=== PATIENT | male | born 1980 | race Caucasian/White ===

== ENCOUNTER 2020-11-11 00:37 | Inpatient (IN) | payer MEDICAID, OTHER ==
[2020-11-11] VITALS (13 sets, daily range): BP systolic 102–159; BP diastolic 57–100
[~2020-11-11] VITALS: Ht 177.8 cm; Wt 108.9 kg
[~2020-11-11 00:37] MED LIST: AMLO-213 PO; ASPI-1169 PO; LEVO75TA7 PO; METO25TA6 PO
[2020-11-11] MEDS ORDERED: NITROGLYCERIN 0.4 MG/TAB BOTTLE SL ONE (01:00)
[2020-11-11] MEDS ORDERED: ASPIRIN 325 MG TABLET PO ONE (01:00)
--- NOTE | 2020-11-11 01:01 | NUR ---
PT CAME IN C/O OF CHEST PRESSURE WITH LEFT ARM NUMBNESS STARTED TODAY. PT PLACED ON 2L OF O2 VIA NC. PT A/O X 4.
[2020-11-11 01:10] LABS: BASOPHILS # (AUTO) 0.1 K/uL (0.0-0.2); BASOPHILS % (AUTO) 1.4 % (0.0-2.0); EOSINOPHILS % (AUTO) 1.3 % (0.0-6.0); HEMATOCRIT 46 % (39-51); HEMOGLOBIN 15.7 g/dL (13.5-17.5); LYMPHOCYTES # (AUTO) 2.2 K/uL (0.8-4.8); LYMPHOCYTES % (AUTO) 28.8 % (20.0-44.0); MEAN CORPUSCULAR HGB CONC 34 g/dl (31.0-36.0); MEAN CORPUSCULAR VOLUME 92 fL (80-96); MONOCYTES # (AUTO) 0.4 K/uL (0.1-1.30); MONOCYTES % (AUTO) 4.8 % (2.0-12.0); NEUTROPHILS # (AUTO) 4.9 K/uL (1.8-8.9); NEUTROPHILS % (AUTO) 63.7 % (43.0-81.0); PLATELET COUNT (AUTO) 295 K/uL (150-450); RED BLOOD CELL COUNT(AUTO) 5.05 MIL/uL (4.5-6.0); WHITE BLOOD COUNT (AUTO) 7.7 K/uL (4.3-11.0)
[2020-11-11] MEDS ORDERED: NITROGLYCERIN 0.4 MG/TAB BOTTLE ONE (01:17)
[2020-11-11] MEDS ORDERED: ASPIRIN 325 MG TABLET ONE (01:18)
--- NOTE | 2020-11-11 01:30 | NUR ---
NITRO 0.4MG 1 TAB AND ASPIRIN 325 MG 1 TAB GIVE. V/S STABLE NSR ON THE MONITOR ON 2 L OF O2.
[2020-11-11 01:36] LABS: CALCIUM, SERUM 8.8 mg/dL (8.5-10.1); CREATININE 0.9 mg/dL (0.6-1.3); POTASSIUM 3.9 mmol/L (3.5-5.1)
[2020-11-11 01:46] LABS: BILIRUBIN,DIRECT 0.1 mg/dL (0.0-0.2); BILIRUBIN,TOTAL 0.2 mg/dL (0.2-1.0); TOTAL PROTEIN, SERUM 7.8 g/dL (6.4-8.2)
--- NOTE | 2020-11-11 03:00 | NUR ---
PT WAITING FOR ROOM TO BE ADMITTED. PT CURRENTLY ASLEEP V/S STABLE, HR 83, NSR ON MONITOR. WILL CONT. TO MONITOR PT.
--- NOTE | 2020-11-11 05:29 | NUR ---
PATIENT CURRENTLY AWAKE DENIES ANY PAIN OR DISCOMFORT AT THIS TIME V/S STABLE.
--- NOTE | 2020-11-11 06:17 | NUR ---
REPORT GIVEN TO LUANN GREENBERG V/S STABLE PT TRANSPORTED BY [facility]S PROTOCOL
[2020-11-11] MEDS ORDERED: ACETAMINOPHEN 325 MG TABLET PO PRN (07:00)
[2020-11-11] MEDS ORDERED: IV D5/0.45 NACL 1,000 ML IV SCH (07:00)
--- NOTE | 2020-11-11 07:10 | NUR ---
AIR BRAKE OPERATOR OPENING NOTE RECEIVED PATIENT ON BED ASLEEP BUT EASILY AROUSABLE, PATIENT IS ALERT/ ORIENTED X 4. PATIENT IS ON OXYGEN AT 2LPM VIA NASAL CANULA FOR COMFORT, WITH NO SIGNS OF RESPIRATORY DISTRESS, SATURATING AT 98-99%. PATINET WIHT IV ACCESS ON RIGHT FOREARM G22 ON SALINE LOCK, PATENT AND INTACT. HE IS ON TELE MONITORING WITH READING OF SR ON THE 80'S. PATIENT ENCOURAGED TO STAY IN BED AND DO RELAXATION TECHNIQUES SUCH DEEP BREATHING EXERCISES. VERBALIZED UNDERSTANDING AND APPRECIATION. PROVIDED WITH CALM AND QUIET ENVIRONMENT. SAFETY MEASURES ENSURED WITH BED AT LOWEST POSITION AND LOCKED. SIDERAILS RAISED FOR SAFETY X 2. CALL LIGHT AND BEDSIDE TABLE WITHIN REACH AT ALL TIMES. WILL CONTINUE TO MONITOR PATIENT.
--- NOTE | 2020-11-11 07:23 | NUR ---
superintendent warehouse Admitting/Closing Notes Patient arrived to the unit via gurney at approximately 0625 accompanied by Nurse Garcia. Patient's alert and oriented x4. Patient's on 2L of oxygen via nasal cannula with no respiratory distress noted. Patient's connected to a tele monitor with no cardiac distress noted. Safety measures in place: Bed locked, bed alarm on, side railsx2, and call light within reach of the patient. Endorsed care to the day shift nurse.
[2020-11-11] MEDS ORDERED: GABA-532 PO (08:27)
[2020-11-11] MEDS ORDERED: ATOR80TA PO (08:27)
[2020-11-11] MEDS ORDERED: OMEP20TA5 PO (08:27)
[2020-11-11] MEDS: LEVOTHYROXINE SODIUM 50 MCG TABLET PO SCH (08:46)
[2020-11-11] MEDS: METOPROLOL TARTRATE 25 MG TABLET PO SCH ×2 (08:47→21:42)
[2020-11-11] MEDS ORDERED: CLOPIDOGREL BISULFATE 75 MG TABLET PO SCH (09:00)
--- NOTE | 2020-11-11 09:10 | NUR ---
LEAD MOBILE DEVELOPER NOTE PATIENT SEEN BY DR. PAUL AND DR. JIMENEZ WITH ORDERS FOR ANGIOGRAM TO BE DONE TODAY. PATIENT VERBALIZED UNDERSTANDING OF MD EXPLANATION OF PROCEDURE. SECURED CONSENT AND ATTACHED TO CHART. WILL CONTINUE TO MONITOR PATIENT. PATIENT KEPT ON NPO.
--- NOTE | 2020-11-11 10:45 | NUR ---
PATTERN FILER NOTE PATIENT BROUGHT TO RADIOLOGY VIA BED FOR ANGIOGRAM ORDERED. PATIENT ACCOMPANIED BY 2 TECH. IN STABLE CONDITION.
--- NOTE | 2020-11-11 10:45 | NUR ---
COMPOUNDING PHARMACY TECHNICIAN OPENING NOTE RECEIVED PATIENT ON BED ASLEEP BUT EASILY AROUSABLE, PATIENT IS ALERT/ ORIENTED X 4. PATIENT IS ON OXYGEN AT 2LPM VIA NASAL CANULA FOR COMFORT, WITH NO SIGNS OF RESPIRATORY DISTRESS, SATURATING AT 98-99%. CHALINO CEBALLOSHT IV ACCESS ON RIGHT FOREARM G22 ON SALINE LOCK, PATENT AND INTACT. HE IS ON TELE MONITORING WITH READING OF SR ON THE 80'S. PATIENT ENCOURAGED TO STAY IN BED AND DO RELAXATION TECHNIQUES SUCH DEEP BREATHING EXERCISES. VERBALIZED UNDERSTANDING AND APPRECIATION. PROVIDED WITH CALM AND QUIET ENVIRONMENT. SAFETY MEASURES ENSURED WITH BED AT LOWEST POSITION AND LOCKED. SIDERAILS RAISED FOR SAFETY X 2. CALL LIGHT AND BEDSIDE TABLE WITHIN REACH AT ALL TIMES. WILL CONTINUE TO MONITOR PATIENT. Addendum: 11/11/20 at 1440 by THOMAS PERALTA RN CORRECTION OPENING NOTES FOR 0710 AM
[2020-11-11] MEDS ORDERED: IV NS 0.9% 1,000 ML ONE (10:53)
[2020-11-11] MEDS ORDERED: MIDAZOLAM HCL 2 MG/2ML VIAL ONE (10:54)
[2020-11-11] MEDS ORDERED: LIDOCAINE HCL/MPF 1% 30 ML VIAL IJ ONE (10:54)
[2020-11-11] MEDS ORDERED: IODIXANOL 150 ML IV ONE (10:54)
[2020-11-11] MEDS ORDERED: FENTANYL PF 100MCG/2ML AMPUL ONE (10:54)
[2020-11-11] MEDS ORDERED: IV SET PRIMARY PUMP SET 1 EA INFUS.SET MC ONE (10:56)
[2020-11-11] MEDS ORDERED: NITROGLYCERIN IN 5 % DEXTROSE 250 ML IV ONE (11:10)
[2020-11-11] MEDS ORDERED: HEPARIN SODIUM, PORCINE 5000 UNITS/1 ML VIAL ONE (12:26)
[2020-11-11] MEDS ORDERED: HEPARIN SODIUM, PORCINE 1,000 UNIT/ML VIAL ONE (12:26)
[2020-11-11] MEDS ORDERED: IODIXANOL 320MG/ML 50 ML IV ONE (12:35)
[2020-11-11] MEDS ORDERED: TICAGRELOR 90 MG TABLET PO ONE (12:41)
--- NOTE | 2020-11-11 13:40 | NUR ---
WOODEN FRAME BUILDER NOTE RECEIVED A CALL FROM RELATIONSHIP MANAGER. PATIENT TRANSFERRED TO ICU BED 254. WILL ENDORSE PATIENT TO ICU NURSE. ENDORSED ACCORDINGLY.
--- NOTE | 2020-11-11 13:45 | NUR ---
PATIENT RECEIVED FROM CARTRIDGE LOADER-S/P HEART CATH WITH STENT X 1 TO LAD. RIGHT FEMORAL PROCEDURE SITE SHEATH INTACT, NO ACTIVE BLEEEDING NOTED. SR 70'S ON MOMITOR. SBP >110. ON RA-SPO2 98%. AWAKE ALERT, DENIES ANY CHEST DISCOMFORT AR THIS TIME.
[2020-11-11] MEDS ORDERED: IV NS 0.9% 1,000 ML IV SCH (14:30)
--- NOTE | 2020-11-11 16:00 | NUR ---
PTT=33.6. OKAY TO DISCONTINUE FEMORAL SHEATH. DR. BARBARA SKAGGS. MARKET RISK SPECIALIST MADE AWARE-TO INFORM COMMAND CENTER OFFICER SELLING UNDERWRITER.
--- NOTE | 2020-11-11 17:50 | NUR ---
CASANDRA FROM SCHOOL VOCATIONAL EDUCATOR AT BEDSIDE TO DISCONTINUE RIGHT FEMORAL SHEATH.
--- NOTE | 2020-11-11 18:25 | NUR ---
HEMOSTASIS STABILIZED WITH MANUAL PRESSURE FOR 25 MINUTES. PRESSURE DRESSING APPLIED BY CASANDRA. CONTINUE TO MONITOR CLOSELY FOR SIGNS OF BLEEDING.PATIENT EDUCATED FOR BEDREST AND NO RLE BENDING FOR 6 HRS. STATED UNDERSTANDING.
--- NOTE | 2020-11-11 19:50 | NUR ---
RN OPENING NOTE REC'D PT IN BED. RESTING. A/O X4. PT ON ROOM AIR. SATURATING 99% NO ACUTE DISTRESS NOTED, NO SOB. PT SINUS RHYTHM IN THE 70S. PT DENIES PAIN AT THIS TIME. PT S/P HEART CATH TODAY. PRESSURE DRESSING NOTED ON RIGHT FEM. NO S/S OF BLEEDING NO HEMATOMA NOTED. DRESSING INTACT. PEDAL PULSES PRESENT. IV SITES FLUSHED AND INTACT. ALL NEEDS ATTENDED AT THIS TIME. PT VERBALIZES UNDERSTANDING OF NOT BENDING RLE. SAFETY PRECAUTIONS IN PLACE. HOB ELEVATED. SIDE RAILS UP X2. BED LOCKED IN LOWEST POSITION. CALL LIGHT WITHIN REACH. WILL CONT TO MONITOR CLOSELY FOR SAFETY AND CHANGE OF CONDITION.
[2020-11-11] MEDS ORDERED: ATORVASTATIN 40 MG TABLET PO SCH (22:00)
[2020-11-12] VITALS (12 sets, daily range): BP systolic 115–158; BP diastolic 73–96
--- NOTE | 2020-11-12 02:15 | NUR ---
RN NOTE:PAIN PT REQUESTED MEDICATION FOR PAIN MINIMAL PAIN R/T POSITIONING AND SORENESS, ADMINISTERED TYLENOL 650MG PRN ORDERED. WILL CONT TO MONITOR CLOSELY
[2020-11-12 04:35] LABS: BASOPHILS # (AUTO) 0.1 K/uL (0.0-0.2); BASOPHILS % (AUTO) 0.7 % (0.0-2.0); HEMATOCRIT 43 % (39-51); HEMOGLOBIN 14.6 g/dL (13.5-17.5); LYMPHOCYTES # (AUTO) 2.3 K/uL (0.8-4.8); MEAN CORPUSCULAR HGB CONC 34 g/dl (31.0-36.0); MEAN CORPUSCULAR VOLUME 92 fL (80-96); MONOCYTES # (AUTO) 0.6 K/uL (0.1-1.30); NEUTROPHILS # (AUTO) 5.6 K/uL (1.8-8.9); NEUTROPHILS % (AUTO) 64.3 % (43.0-81.0); PLATELET COUNT (AUTO) 241 K/uL (150-450); RED BLOOD CELL COUNT(AUTO) 4.64 MIL/uL (4.5-6.0); WHITE BLOOD COUNT (AUTO) 8.7 K/uL (4.3-11.0)
[2020-11-12 04:53] LABS: THYROID STIMULATING HORMONE 3.042 uIU/mL (0.358-3.74)
[2020-11-12 05:13] LABS: CALCIUM, SERUM 8.6 mg/dL (8.5-10.1)
[2020-11-12] MEDS ORDERED: TICAGRELOR 90 MG TABLET PO SCH (07:00)
--- NOTE | 2020-11-12 07:12 | NUR ---
RN CLOSING NOTE NO SIGNIFICANT CHANGES. PT REMAINS ON ON ROOM AIR. TOLERATING WELL. ALL IV SITES INTACT. PT ABLE TO USE URINAL. T/R INDEPENDENTLY. PRESSURE DRESSING REMOVED, NO S/S OF SWELLING, BLEEDING, HEMATOMA PRESENT. TEGADERM APPLIED. ALL DUE MEDS GIVEN ORDERED. SAFETY MEASURES IN PLACE. NO DISTRESS NOTED AT THIS TIME. WILL ENDORSE TO DAY SHIFT RN FOR CONTINUATION OF CARE.
--- NOTE | 2020-11-12 07:30 | NUR ---
AWAKE, ALERT , DENIES ANY CHEST PAIN OR DISCOMFORT. SR 70'S, NO ECTOPYS. BP STABLE. RIGHT FEMORAL PROCEDURE SITE WITHOUT SIGNS OF ACTIVE BLEEDING.
[2020-11-12] MEDS: LEVOTHYROXINE SODIUM 50 MCG TABLET PO SCH (07:44)
[2020-11-12] MEDS: METOPROLOL TARTRATE 25 MG TABLET PO SCH (08:16)
[2020-11-12] MEDS ORDERED: ASPIRIN 81 MG TAB.CHEW PO SCH (09:00)
--- NOTE | 2020-11-12 09:30 | NUR ---
AMBULATED TO THE BATHROOM. NO DIZZINESS, NO CHEST PAIN. NO BLEEDING NOTED. DENIES SOB.
--- NOTE | 2020-11-12 10:30 | NUR ---
PATIENT SEEN BY DR. COVARRUBIAS TO DISCHARGE HOME. DR. JIMENEZ NOTIFIED-HELPDESK TECHNICIAN OKST[place]ONED DISCHARGE.
[2020-11-12] MEDS ORDERED: TICA90TA PO (10:37)
--- NOTE | 2020-11-12 11:35 | NUR ---
DISCHARGE INSTRUCTIONS / PRESCRIPTION GIVEN. PATIENT INDICATED UNDERSTANDING TO DISPATCH MACHINE RUNNER BRILINTA FROM HIS PHARMACY FOR THIS PM DOSE. ACCOMPANIED TO LOBBY-PICKED UP BY .
== END 2020-11-12 11:58 | disposition home or self-care (01) | DRG 174 ==
LOC: ER 00:49 → TELE 04:48 → ICU 13:25
PROVIDERS: ADMIT Internal Medicine; ATTEND Internal Medicine
PROC: 027034Z Dilation of Coronary Artery, One Artery with Drug-eluting Intraluminal Device, Percutaneous Approach (ICD-10-PCS; principal; 2020-11-11)
PROC: 4A023N7 Measurement of Cardiac Sampling and Pressure, Left Heart, Percutaneous Approach (ICD-10-PCS; 2020-11-11)
PROC: B211YZZ Fluoroscopy of Multiple Coronary Arteries using Other Contrast (ICD-10-PCS; 2020-11-11)
PROC: B215YZZ Fluoroscopy of Left Heart using Other Contrast (ICD-10-PCS; 2020-11-11)
PROC: 4A033BC Measurement of Arterial Pressure, Coronary, Percutaneous Approach (ICD-10-PCS; 2020-11-11)
DX: I21.4 Non-ST elevation (NSTEMI) myocardial infarction (principal); E78.5 Hyperlipidemia, unspecified; I10 Essential (primary) hypertension; Z95.5 Presence of coronary angioplasty implant and graft; K29.70 Gastritis, unspecified, without bleeding; Z20.822 Contact with and (suspected) exposure to COVID-19; Z79.82 Long term (current) use of aspirin; Z79.899 Other long term (current) drug therapy; F17.200 Nicotine dependence, unspecified, uncomplicated; I25.10 Atherosclerotic heart disease of native coronary artery without angina pectoris; Z91.19 Patient's noncompliance with other medical treatment and regimen; Z86.39 Personal history of other endocrine, nutritional and metabolic disease
CPT/HCPCS: 36415; 71045-TC; 80048-TC; 80061-TC; 80076-TC; 84443-TC; 84484-TC; 85025-TC; 85378-TC; 85730-TC; 87081-TC; 92980; 93307-TC; A6403; C1725; C1769; C1887; C1894; C9803; G0378; G0500; J1644; J2250; J3010; J3490; J7030; Q9967

== ENCOUNTER 2021-01-27 07:22 | Inpatient (IN) | payer MEDICAID ==
[~2021-01-27] VITALS: Ht 177.8 cm; Wt 108.0 kg
[2021-01-27] VITALS: BP 140/90
[~2021-01-27 07:22] MED LIST changes: +ATOR80TA PO; +GABA-532 PO; +OMEP20TA5 PO; +TICA90TA PO
--- NOTE | 2021-01-27 07:40 | NUR ---
PT CAME TO ER C/O EPIGASTRIC PAIN SINCE YESTERDAY AFTER EATING SOUP. DENIES N/V, DIAPHORESIS. ADMITS BLOATING. TOOK OMEPRAZOLE 4 HRS AGO, NO RELIEF. AAOX4, BREATHIN GEVEN AND UNLABORED, PULSES 2+ BILATERALLY, SKIN WARM AND DRY, ASSITED TO ER BED 1, ON MONITOR, LAYING ON BED, GIVEN BLANKETS.
[2021-01-27] MEDS ORDERED: MAG HYDROX/AL HYDROX/SIMETH 30 ML UDC ONE ×2 (07:58→15:02)
[2021-01-27] MEDS ORDERED: ONDANSETRON HCL/PF 4 MG/2 ML VIAL ONE (07:58)
[2021-01-27] MEDS ORDERED: LIDOCAINE VISCOUS 2% UD 15 ML UDC ONE (07:59)
[2021-01-27] MEDS ORDERED: FAMOTIDINE/PF INJ 20 MG/2 ML VIAL IV ONE ×2 (07:59→08:00)
[2021-01-27] MEDS ORDERED: MAG HYDROX/AL HYDROX/SIMETH 30 ML UDC PO ONE (08:00)
[2021-01-27] MEDS ORDERED: ONDANSETRON HCL/PF 4 MG/2 ML VIAL IVP ONE (08:00)
[2021-01-27] MEDS ORDERED: IV NS 0.9% 1,000 ML BAG IV ONE (08:00)
[2021-01-27] MEDS ORDERED: LIDOCAINE VISCOUS 2% UD 15 ML UDC MM ONE (08:00)
--- NOTE | 2021-01-27 08:08 | NUR ---
RADIOLOGY AT BEDSIDE
--- NOTE | 2021-01-27 08:13 | NUR ---
ULTRASOUND BEING DONE AT BEDSIDE
[2021-01-27 08:30] LABS: BASOPHILS # (AUTO) 0.1 K/uL (0.0-0.2); BASOPHILS % (AUTO) 0.7 % (0.0-2.0); HEMATOCRIT 48 % (39-51); HEMOGLOBIN 15.9 g/dL (13.5-17.5); LYMPHOCYTES # (AUTO) 2.7 K/uL (0.8-4.8); LYMPHOCYTES % (AUTO) 22.6 % (20.0-44.0); MEAN CORPUSCULAR HGB CONC 33 g/dl (31.0-36.0); MEAN CORPUSCULAR VOLUME 91 fL (80-96); MONOCYTES # (AUTO) 0.6 K/uL (0.1-1.30); MONOCYTES % (AUTO) 5.3 % (2.0-12.0); NEUTROPHILS # (AUTO) 8.2 K/uL (1.8-8.9); NEUTROPHILS % (AUTO) 69.4 % (43.0-81.0); PLATELET COUNT (AUTO) 303 K/uL (150-450); RED BLOOD CELL COUNT(AUTO) 5.22 MIL/uL (4.5-6.0); WHITE BLOOD COUNT (AUTO) 11.8 K/uL (4.3-11.0)
[2021-01-27] MEDS: ATORVASTATIN 40 MG TABLET PO SCH (09:00)
--- NOTE | 2021-01-27 09:02 | NUR ---
PT LAYING COMFORTABLY IN BED, ADDITIONAL BLANKETS GIVEN
[2021-01-27 09:04] LABS: CALCIUM, SERUM 8.8 mg/dL (8.5-10.1); CREATININE 1.1 mg/dL (0.6-1.3); POTASSIUM 4.4 mmol/L (3.5-5.1)
[2021-01-27 09:10] LABS: ALBUMIN 4.1 g/dL (3.4-5.0); BILIRUBIN,DIRECT 0.1 mg/dL (0.0-0.2); BILIRUBIN,TOTAL 0.5 mg/dL (0.2-1.0); TOTAL PROTEIN, SERUM 8.1 g/dL (6.4-8.2)
[2021-01-27] MEDS ORDERED: ASPIRIN 81 MG TAB.CHEW ONE (09:38)
[2021-01-27] MEDS ORDERED: ASPIRIN 81 MG TAB.CHEW PO ONE (10:00)
--- NOTE | 2021-01-27 10:17 | NUR ---
PT AMBULATED TO RESTROOM
--- NOTE | 2021-01-27 10:47 | NUR ---
PAGED DR. PAUL
[2021-01-27] MEDS ORDERED: TICAGRELOR 90 MG TABLET PO STA (10:52)
[2021-01-27] MEDS ORDERED: MORPHINE SULFATE INJ 4 MG/ML DISP.SYRIN ONE (10:54)
[2021-01-27] MEDS ORDERED: ENOXAPARIN SODIUM 100 MG/ML DISP.SYRIN SQ ONE ×2 (11:00→11:35)
[2021-01-27] MEDS ORDERED: CLOPIDOGREL BISULFATE 300 MG TABLET PO ONE (11:00)
[2021-01-27] MEDS ORDERED: MORPHINE SULFATE INJ 2 MG/ML DISP.SYRIN IV ONE (11:00)
--- NOTE | 2021-01-27 11:12 | NUR ---
CALLED PHARMACY FOR MEDICATION
[2021-01-27] MEDS ORDERED: PANTOPRAZOLE 40 MG VIAL IV SCH (12:00)
[2021-01-27] MEDS ORDERED: PANTOPRAZOLE 40 MG VIAL ONE (13:29)
--- NOTE | 2021-01-27 14:51 | NUR ---
PT GOING TO 328.
[2021-01-27] MEDS ORDERED: MAG HYDROX/AL HYDROX/SIMETH 30 ML UDC PO PRN (15:00)
[2021-01-27] MEDS ORDERED: HYDROMORPHONE 1 MG/1 ML DISP.SYRIN ONE (15:03)
--- NOTE | 2021-01-27 15:20 | NUR ---
REPORT GIVEN TO RN
[2021-01-27] MEDS: HYDROMORPHONE 1 MG/1 ML DISP.SYRIN IV PRN ×3 (15:23→23:57)
--- NOTE | 2021-01-27 15:25 | NUR ---
PT TRANSPORTED TO FLOOR
--- NOTE | 2021-01-27 15:30 | NUR ---
MOLD SHEET CLEANER NOTE PATIENT ADMITTED FROM ER IS A 2 YEAR OLD MALE TRANSPORTED ON A GURNEY ACCOMPANIED BY 2 NURSES. PATIENT TRANFERRED TO BED AN COMFORT MEASURES PROVIDED. PATIENT COMPLAINING OF PERSISTENT EPIGASTRIC PAIN AND WANTS THE FOOD QUALITY TECHNICIAN TO SEE HIM. COMFORT MEASURES PROVIDED. PATIENT IS AMBULATORY BUT ENCOURAGED TO HAVE BEDREST. ENCOURAGED TO DO DEEP BREATHING EXERCISES. PATIENT WITH RIGHT AC G20 ON SALINE LOCK, PATENT AND INTACT. DR. AMARO NOTIFIED OF ADMISSION. HEALTH TEACHING DONE REGARDING ADMISSION PROTOCOL, VERBALIZED UNDERSTANDING. SAFETY MEASURES ENSURED WITH, BED LOCKED AND AT LOWEST POSITION, SIDE RAILS UP. CALL LIGHT WITHIN REACH AT ALL TIMES. WILL CONTINUE TO MONITOR PATIENT.
--- NOTE | 2021-01-27 16:15 | NUR ---
VRT MECHANIC NOTE PATIENT ON TELE MONITOR READING SINUS RHYTHYM. PATIENT CURRENTLY ASLEEP. WILL CONTINUE TO MONITOR.
[2021-01-27] MEDS: GABAPENTIN 100 MG CAPSULE PO SCH (17:47)
[2021-01-27] MEDS: METOPROLOL TARTRATE 25 MG TABLET PO SCH (17:48)
--- NOTE | 2021-01-27 18:57 | NUR ---
HANDBAG OPERATOR CLOSING NOTES PATIENT IN BED, AWAKE, A/O X4. PATIENT ON OROOM AIR BREATHING EVEN AND UNLABORED. NO COMPLAINS OF PAIN AT THIS TIME. WITH IV ACCESS ON THE RIGHT AC G20, ON SALINE LOCK, PATENT AND INTACT. SAFETY PRECAUTIONS IN PLACE, BED IN LOW POSITION AND LOCKED, RAILS UP X2, CALL LIGHT WITHIN REACH. WILL ENDORSE PATIENT FOR CONTINUITY OF CARE.
--- NOTE | 2021-01-27 19:45 | NUR ---
PRESCHOOL PROGRAM DIRECTOR NOTES SR-86 ON TELE MONITOR,A/O X4PER REPORT,SLEEPING WHEN NURSE MAKE ROUNDS,BREATHING REGULAR,NOT IN ANY FORM OF DISTRESS.SALINE LOCK RIGHT AC INTACT AND PATENT.CALL LIGHT IN REACH,NEEDS ANTICIPATED.
[2021-01-27 20:00] VITALS: BP 124/91
--- NOTE | 2021-01-27 23:57 | NUR ---
CEILING CLEANER NOTES PAIN MANAGEMENT C/O ABDOMINAL PAIN,DILAUDID 0.5MG IV GIVEN ORDERED.
[2021-01-28] VITALS: BP 140/99
--- NOTE | 2021-01-28 | NUR ---
INFORMATION CLERK AUTOMOBILE CLUB NOTES COMPLAINTS OF ABDOMINAL,THE REASON WHY HE WAS HERE AND HE WANTS CT ABDOMEN,MD DR PAUL MADE AWARE WITH NEW ORDER NOTED AND CARRIED OUT.
--- NOTE | 2021-01-28 00:18 | NUR ---
REGISTRY NP NOTES GOING FOR CT ABDOMEN PELVIS WITHOUT CONTRAST IN THE MORNING ORDERED.
[2021-01-28 05:00] VITALS: BP 141/93
[2021-01-28 05:40] VITALS: BP 141/93
--- NOTE | 2021-01-28 06:29 | NUR ---
PANTOGRAPH WATCHER NOTES STILL WITH ON AND OFF MID UPPER ABDOMINAL PAIN,MANAGE WITH DILAUDID.KEPT NPO FOR CD ANGIO HEART WITH 3D IMAGE, AND CT ABDOMEN PELVIS WITH OUT CONTRAST,SR ON TELE MONITOR.CALL LIGHT IN REACH,NEEDS ATTENDED.
[2021-01-28] MEDS: LEVOTHYROXINE SODIUM 125 MCG TABLET PO SCH (07:30)
--- NOTE | 2021-01-28 07:30 | NUR ---
DUCK OPERATOR OPENING NOTE RECEIVED PT AWAKE IN BED. A/O X4. PT IS STABLE ON RA WITH NO SOB OR S/S OF RESPIRATORY DISTRESS NOTED. PT ON EXTERNAL SLICE PLUG CUTTER OPERATOR READING SR. PT HAS NO C/O PAIN OR DISCOMFORT AT THIS TIME. IV ACCESS IN RAC #20, INTACT AND PATENT. PT KEPT NPO DUE TO UPCOMING CT ABD/PELVIS W/O CONTRAST. SAFETY PRECAUTIONS MAINTAINED. BED IN LOWEST LOCKED POSITION, HOB ELEVATED, SIDE RAILS UP X2. CALL LIGHT AND TABLE WITHIN REACH. WILL CONTINUE TO MONITOR.
[2021-01-28 07:50] LABS: BASOPHILS % (AUTO) 0.5 % (0.0-2.0); EOSINOPHILS % (AUTO) 1.6 % (0.0-6.0); HEMATOCRIT 45 % (39-51); HEMOGLOBIN 15.1 g/dL (13.5-17.5); LYMPHOCYTES # (AUTO) 1.6 K/uL (0.8-4.8); LYMPHOCYTES % (AUTO) 17.9 % (20.0-44.0); MEAN CORPUSCULAR HGB CONC 34 g/dl (31.0-36.0); MEAN CORPUSCULAR VOLUME 91 fL (80-96); MONOCYTES # (AUTO) 0.5 K/uL (0.1-1.30); NEUTROPHILS # (AUTO) 6.5 K/uL (1.8-8.9); PLATELET COUNT (AUTO) 272 K/uL (150-450); RED BLOOD CELL COUNT(AUTO) 4.91 MIL/uL (4.5-6.0); WHITE BLOOD COUNT (AUTO) 8.7 K/uL (4.3-11.0)
[2021-01-28] MEDS: METOPROLOL TARTRATE 25 MG TABLET PO SCH ×2 (08:08→16:46)
[2021-01-28] MEDS: ASPIRIN 81 MG TAB.CHEW PO SCH (08:41)
[2021-01-28] MEDS: ATORVASTATIN 40 MG TABLET PO SCH (08:41)
[2021-01-28] MEDS: GABAPENTIN 100 MG CAPSULE PO SCH ×2 (08:42→16:45)
[2021-01-28] MEDS: AMLODIPINE BESYLATE 10 MG TABLET PO SCH (08:42)
[2021-01-28] MEDS ORDERED: IOHEXOL-350 100 ML VIAL IV ONE (09:02)
[2021-01-28] MEDS ORDERED: IV NS 0.9% 250 ML IV ONE (09:02)
[2021-01-28] MEDS ORDERED: METOPROLOL TARTRATE INJ 5 MG/5 ML AMPUL ONE ×2 (09:08→09:22)
[2021-01-28] MEDS: METOPROLOL TARTRATE INJ 5 MG/5 ML AMPUL IVP SCH ×3 (09:10→09:20)
[2021-01-28] MEDS: METOPROLOL TARTRATE INJ 5 MG/5 ML AMPUL IVP STA ×2 (09:10→09:17)
[2021-01-28] MEDS: METOPROLOL TARTRATE INJ 5 MG/5 ML AMPUL IVP PRN ×6 (09:30→09:56)
[2021-01-28] MEDS ORDERED: NITROGLYCERIN 0.4 MG/TAB BOTTLE SL ONE ×2 (09:30)
[2021-01-28] MEDS ORDERED: METOPROLOL TARTRATE INJ 5 MG/5 ML AMPUL IVP ONE (09:30)
[2021-01-28 09:50] LABS: ALBUMIN 3.7 g/dL (3.4-5.0); BILIRUBIN,TOTAL 0.5 mg/dL (0.2-1.0); CALCIUM, SERUM 8.6 mg/dL (8.5-10.1); CREATININE 1.1 mg/dL (0.6-1.3); POTASSIUM 4.1 mmol/L (3.5-5.1); TOTAL PROTEIN, SERUM 7.7 g/dL (6.4-8.2)
--- NOTE | 2021-01-28 09:58 | NUR ---
RN NOTES CTA PROCEDURE WELL TOLERATED BY THE PT. NOT IN RESPIRATORY DISTRESS, V/S STABLE, KEPT RESTED AND COMFORTABLE. REPORT GIVEN TO DIONICIO GARCIA FOR VINCE.
[2021-01-28] MEDS: HYDROMORPHONE 1 MG/1 ML DISP.SYRIN IV PRN ×3 (10:18→23:14)
--- NOTE | 2021-01-28 10:18 | NUR ---
RN NOTE - PAIN PT C/O ACHING PAIN IN THE ABDOMEN RATED 9/10 ON PAIN SCALE. VSS. PER PT REQUEST, ADMINISTERED DILAUDID 0.5MG IV Q3H PRN PER ORDER. WILL CONTINUE TO MONITOR PT.
[2021-01-28] MEDS: PANTOPRAZOLE 40 MG VIAL IV SCH ×2 (12:03→16:45)
[2021-01-28] MEDS: SUCRALFATE 1 G TABLET PO SCH ×3 (12:03→21:13)
--- NOTE | 2021-01-28 18:33 | NUR ---
HOUSING AND RESIDENCE LIFE DIRECTOR CLOSING NOTE PT AWAKE IN BED. A/O X4. PT IS STABLE ON RA WITH NO SOB OR S/S OF RESPIRATORY DISTRESS NOTED. PT ON EXTERNAL MOTOR EQUIPMENT CAPTAIN READING SR @ 84. PT HAS NO C/O PAIN OR DISCOMFORT AT THIS TIME. IV ACCESS IN RAC #20, INTACT AND PATENT. ALL NEEDS MET AT THIS TIME. SAFETY PRECAUTIONS MAINTAINED AT THIS TIME. BED IN LOWEST LOCKED POSITION, HOB ELEVATED, SIDE RAILS UP X2. CALL LIGHT AND TABLE WITHIN REACH. WILL ENDORSE TO ONCOMING NURSE FOR VINCE.
--- NOTE | 2021-01-28 19:36 | NUR ---
LATIN TEACHER OPENING NOTE RECEIVED PT AWAKE IN BED. A/O X4. IN NO APPARENT DISTRESS NOTED, BREATHING EVEN AND UNLABORED. PATIENT DENIES OF PAIN OR DISCOMFORT AT THIS TIME. PT ON EXTERNAL ENVIRONMENTAL SAMPLER WITH CURRENT READING NSR HR-92. IV ACCESS IN RAC #20, INTACT AND PATENT. SAFETY PRECAUTIONS MAINTAINED AT THIS TIME. BED IN LOWEST LOCKED POSITION, HOB ELEVATED, SIDE RAILS UP X2. CALL LIGHT AND TABLE WITHIN REACH. WILL CONTINUE TO MONITOR PATIENT ACCORDINGLY.
[2021-01-28 21:56] VITALS: BP 126/77
--- NOTE | 2021-01-28 23:47 | NUR ---
QUALITY CONTROL SPECIALIST NOTES PT. C/O UPPER ABDOMINAL PAIN 10/05 PRN DILAUDID IV GIVEN ORDERED . PLACE PT. IN COMFORTABLE POSITION AND KEPT HIM REST. FREQUENT VISUAL CHECKS RENDERED TO ENSURE SAFETY AND COMFORT. WILL CONTINUE TO MONITOR PT. ACCDGLY
[2021-01-29 03:26] VITALS: BP 123/75
[2021-01-29 06:10] LABS: CALCIUM, SERUM 8.6 mg/dL (8.5-10.1); CREATININE 1.2 mg/dL (0.6-1.3); POTASSIUM 3.8 mmol/L (3.5-5.1)
--- NOTE | 2021-01-29 06:24 | NUR ---
DISPATCH MANAGER CLOSING NOTE PT AWAKE IN BED. A/O X4. PT IS STABLE ON RA WITH NO RESPIRATORY DISTRESS NOTED. BREATHING EVEN AND UNLABORED. PT ON EXTERNAL ACCOUNTING ANALYST WITH CURRENT READING NSR HR 85. PT HAS NO C/O PAIN OR DISCOMFORT AT THIS TIME. IV ACCESS IN RAC #20, INTACT AND PATENT. ALL NEEDS ATTENDED. SAFETY PRECAUTIONS MAINTAINED AT THIS TIME. BED IN LOWEST LOCKED POSITION, HOB ELEVATED, SIDE RAILS UP X2. CALL LIGHT AND TABLE WITHIN EASY REACH. WILL ENDORSE PT. TO DAYTIME SHIFT NURSE FOR VINCE.
[2021-01-29 07:09] VITALS: BP 124/80
--- NOTE | 2021-01-29 07:30 | NUR ---
NEWS LIBRARIAN OPENING NOTES RECEIVED PATIENT ON BED, AWAKE AND A/O X4. ON ROOM AIR BREATHING EVENLY AND UNLABORED. NOT IN DISTRESS. WITH NO COMPLAINTS OF PAIN AT THIS TIME. WITH IV ACCESS AT RIGHT AC G20 SALINE LOCKED, PATENT AND INTACT. ON TELE MONITOR CURRENTLY READING SINUS RHYTHM AT 80BPM. SAFETY MEASURES IN PLACED. CALL LIGHT WITHIN REACH. BED ON LOWEST AND LOCKED POSITION, SIDE RAILS UP X2. WILL CONTINUE TO MONITOR.
[2021-01-29 08:00] VITALS: BP 116/73
[2021-01-29] MEDS: AMLODIPINE BESYLATE 10 MG TABLET PO SCH (09:00)
[2021-01-29] MEDS: SUCRALFATE 1 G TABLET PO SCH ×2 (09:11→11:43)
[2021-01-29] MEDS: ASPIRIN 81 MG TAB.CHEW PO SCH (09:13)
[2021-01-29] MEDS: PANTOPRAZOLE 40 MG VIAL IV SCH (09:14)
[2021-01-29 09:17] VITALS: BP 116/73
[2021-01-29] MEDS: METOPROLOL TARTRATE 25 MG TABLET PO SCH (09:17)
[2021-01-29] MEDS: ATORVASTATIN 40 MG TABLET PO SCH (09:18)
[2021-01-29] MEDS: LEVOTHYROXINE SODIUM 125 MCG TABLET PO SCH (09:18)
[2021-01-29] MEDS: GABAPENTIN 100 MG CAPSULE PO SCH (09:19)
[2021-01-29] MEDS ORDERED: PANT40TA2 PO (10:16)
[2021-01-29] MEDS ORDERED: CLOP75TA15 PO (10:16)
[2021-01-29] MEDS ORDERED: SUCR1TAB31 PO (10:16)
--- NOTE | 2021-01-29 11:54 | NUR ---
MOSAIC TILE MAKERGUIDE WINDER NOTES PATIENT WAS SEEN BY DR. PAUL WITH ORDERS FOR PATIENT FOR DISCHARGE TO HOME. DISCHARGE INSTRUCTIONS AND EDUCATION PROVIDED TO PATIENT AND EXPLAINED MEDICATIONS AND PRESCRIPTIONS. PATIENT VERBALIZED UNDERSTANDING. DISCHARGE FORM AND BELONGINGS LIST FORM SIGNED BY PATIENT. ALL BELONGINGS ACCOUNTED FOR. NAME WRIST BAND AND IV LINE REMOVED. ACCOMPANIED PATIENT TO THE [facility] AND WAS PICKED UP BY VIA PRIVATE CAR IN STABLE CONDITION. CHARGE NURSE AND MD ARE AWARE OF THE DISCHARGE.
== END 2021-01-29 11:55 | disposition home or self-care (01) | DRG 241 ==
LOC: ER 07:25 → TRANSITION 13:11 → TELE 14:57
PROVIDERS: ADMIT Internal Medicine; ATTEND Internal Medicine
DX: K29.70 Gastritis, unspecified, without bleeding (principal); E03.9 Hypothyroidism, unspecified; E78.5 Hyperlipidemia, unspecified; I25.10 Atherosclerotic heart disease of native coronary artery without angina pectoris; I10 Essential (primary) hypertension; Z95.5 Presence of coronary angioplasty implant and graft; Z79.82 Long term (current) use of aspirin; Z79.899 Other long term (current) drug therapy; Z91.19 Patient's noncompliance with other medical treatment and regimen; Z79.02 Long term (current) use of antithrombotics/antiplatelets; K80.20 Calculus of gallbladder without cholecystitis without obstruction; N20.0 Calculus of kidney; F17.200 Nicotine dependence, unspecified, uncomplicated; R79.89 Other specified abnormal findings of blood chemistry
CPT/HCPCS: 36415; 71045-TC; 75574; 76705-TC; 80048-TC; 80053-TC; 80061-TC; 80076-TC; 82962-TC; 83690-TC; 84484-TC; 85025-TC; 87081-TC; C9113; C9803; G0378; J1170; J1650; J2270; J2405; J3490; J7050; Q9967

== ENCOUNTER 2023-04-15 22:18 | Emergency (ER) | payer MEDICAID ==
[~2023-04-15] VITALS: Ht 177.8 cm; Wt 104.3 kg
[~2023-04-15 22:18] MED LIST changes: +CLOP75TA15 PO; +PANT40TA2 PO; +SUCR1TAB31 PO; -TICA90TA PO
[2023-04-15 22:32] VITALS: TEMP 98.2
[2023-04-15] MEDS ORDERED: KETOROLAC TROMETHAMINE INJ 30 MG/ML VIAL ONE (22:50)
[2023-04-15] MEDS: KETOROLAC TROMETHAMINE INJ 60 MG/2 ML VIAL IM ONE (22:56)
[2023-04-16 00:56] VITALS: BP 162/91; O2SAT 99
== END 2023-04-16 00:57 | disposition home or self-care (01) ==
LOC: ER 22:21
DX: S39.012A Strain of muscle, fascia and tendon of lower back, initial encounter (principal); I10 Essential (primary) hypertension; E07.9 Disorder of thyroid, unspecified; Z79.899 Other long term (current) drug therapy; V89.2XXA Person injured in unspecified motor-vehicle accident, traffic, initial encounter; Y93.89 Activity, other specified; Y92.89 Other specified places as the place of occurrence of the external cause; Y99.8 Other external cause status
CPT/HCPCS: 99285; 72125; 96372; 70450; 72131; 72128; J1885

== ENCOUNTER 2024-03-23 16:01 | Inpatient (IN) | payer MEDICAID ==
[~2024-03-23] VITALS: Ht 180.3 cm; Wt 99.9 kg
[2024-03-23] MEDS ORDERED: NITROGLYCERIN 0.4 MG/TAB BOTTLE ONE (16:18)
[2024-03-23] MEDS ORDERED: ASPIRIN EC 325 MG TABLET.DR PO ONE (16:19)
[2024-03-23] MEDS: ASPIRIN 325 MG TABLET PO ONE (16:20)
[2024-03-23] MEDS: NITROGLYCERIN 0.4 MG/TAB BOTTLE SL ONE (16:21)
[2024-03-23 16:43] LABS: BASOPHILS # (AUTO) 0.1 K/uL (0.0-0.2); BASOPHILS % (AUTO) 0.8 % (0.0-2.0); EOSINOPHILS # (AUTO) 0.1 K/uL (0.0-0.7); EOSINOPHILS % (AUTO) 0.7 % (0.0-6.0); HEMATOCRIT 43 % (39-51); HEMOGLOBIN 14.6 g/dL (13.5-17.5); LYMPHOCYTES # (AUTO) 2.6 K/uL (0.8-4.8); LYMPHOCYTES % (AUTO) 27.7 % (20.0-44.0); MEAN CORPUSCULAR HEMOGLOBIN 32 PG (26.0-33.0); MEAN CORPUSCULAR HGB CONC 34 g/dl (31.0-36.0); MEAN CORPUSCULAR VOLUME 95 fL (80-96); MONOCYTES # (AUTO) 0.6 K/uL (0.1-1.30); MONOCYTES % (AUTO) 6.4 % (2.0-12.0); NEUTROPHILS % (AUTO) 64.4 % (43.0-81.0); PLATELET COUNT (AUTO) 287 K/uL (150-450); RED BLOOD CELL COUNT(AUTO) 4.53 MIL/uL (4.5-6.0); RED CELL DISTRIBUTION WIDTH 14.1 % (11.5-15.0); WHITE BLOOD COUNT (AUTO) 9.4 K/uL (4.3-11.0)
[2024-03-23 16:50] LABS: CALCIUM, SERUM 8.8 mg/dL (8.5-10.1); CARBON DIOXIDE 28 mmol/L (21-32); CHLORIDE 105 mmol/L (98-107); CREATININE 1.2 mg/dL (0.6-1.3); GLUCOSE 99 mg/dL (74-106); SODIUM SERUM 140 mmol/L (136-145); UREA NITROGEN, BLOOD 24 mg/dL (7-18)
[2024-03-23] MEDS ORDERED: MORPHINE SULFATE INJ 4 MG/ML DISP.SYRIN ONE (21:46)
[2024-03-23] MEDS: MORPHINE SULFATE INJ 2 MG/ML DISP.SYRIN IV ONE (21:47)
[2024-03-23] MEDS ORDERED: METOPROLOL TARTRATE 50 MG TABLET ONE (21:47)
[2024-03-23] MEDS: METOPROLOL TARTRATE 50 MG TABLET PO SCH (23:08)
[2024-03-24] MEDS ORDERED: ZOLPIDEM TARTRATE 5 MG TABLET PO PRN (00:30)
[2024-03-24] MEDS ORDERED: HYDROCODONE/APAP 5/325MG TABLET PO PRN (00:30)
[2024-03-24] MEDS ORDERED: ONDANSETRON HCL/PF 4 MG/2 ML VIAL IV PRN (00:30)
[2024-03-24] MEDS ORDERED: ACETAMINOPHEN 325 MG TABLET PO PRN (00:30)
[2024-03-24 06:40] LABS: BASOPHILS # (AUTO) 0.1 K/uL (0.0-0.2); BASOPHILS % (AUTO) 0.7 % (0.0-2.0); EOSINOPHILS # (AUTO) 0.1 K/uL (0.0-0.7); EOSINOPHILS % (AUTO) 0.7 % (0.0-6.0); HEMATOCRIT 41 % (39-51); HEMOGLOBIN 13.9 g/dL (13.5-17.5); LYMPHOCYTES # (AUTO) 2.4 K/uL (0.8-4.8); LYMPHOCYTES % (AUTO) 28.8 % (20.0-44.0); MEAN CORPUSCULAR HEMOGLOBIN 32 PG (26.0-33.0); MEAN CORPUSCULAR HGB CONC 34 g/dl (31.0-36.0); MEAN CORPUSCULAR VOLUME 94 fL (80-96); MONOCYTES # (AUTO) 0.5 K/uL (0.1-1.30); MONOCYTES % (AUTO) 6.3 % (2.0-12.0); NEUTROPHILS # (AUTO) 5.3 K/uL (1.8-8.9); NEUTROPHILS % (AUTO) 63.5 % (43.0-81.0); PLATELET COUNT (AUTO) 272 K/uL (150-450); RED CELL DISTRIBUTION WIDTH 13.8 % (11.5-15.0); WHITE BLOOD COUNT (AUTO) 8.3 K/uL (4.3-11.0)
[2024-03-24] MEDS ORDERED: METOPROLOL TARTRATE 50 MG TABLET ONE (06:44)
[2024-03-24 06:51] LABS: CALCIUM, SERUM 8.8 mg/dL (8.5-10.1); CREATININE 0.7 mg/dL (0.6-1.3); POTASSIUM 4.4 mmol/L (3.5-5.1)
[2024-03-24 06:59] LABS: ALBUMIN 3.4 g/dL (3.4-5.0); BILIRUBIN,TOTAL 0.5 mg/dL (0.2-1.0); TOTAL PROTEIN, SERUM 6.6 g/dL (6.4-8.2)
[2024-03-24 07:03] LABS: THYROID STIMULATING HORMONE 6.81 uIU/mL (0.358-3.74)
[2024-03-24 07:05] VITALS: O2SAT 98
[2024-03-24] MEDS ORDERED: LEVO175T7 PO (07:47)
[2024-03-24] MEDS: CLOPIDOGREL BISULFATE 75 MG TABLET PO SCH (09:00)
[2024-03-24] MEDS: ASPIRIN 81 MG TAB.CHEW PO SCH (09:00)
[2024-03-24] MEDS: SUCRALFATE 1 G TABLET PO SCH (09:12)
[2024-03-24] MEDS: PANTOPRAZOLE 40 MG TABLET.DR PO SCH (09:12)
[2024-03-24] MEDS: GABAPENTIN 100 MG CAPSULE PO SCH (09:12)
[2024-03-24] MEDS: AMLODIPINE BESYLATE 5 MG TABLET PO SCH (09:14)
[2024-03-24 11:42] LABS: INR 0.99 (0.91-1.10); PARTIAL THROMBOPLASTIN TIME 25.4 SEC (24.3-34.3); PROTHROMBIN TIME 10.5 SECS (9.2-11.1)
[2024-03-24 12:00] VITALS: BP 154/104; TEMP 98.2; O2SAT 97
[2024-03-24] MEDS ORDERED: IV SET PRIMARY PUMP SET 1 EA INFUS.SET MC ONE (12:27)
[2024-03-24] MEDS ORDERED: IV NS 0.9% 1,000 ML ONE (12:27)
[2024-03-24] MEDS ORDERED: IODIXANOL 150 ML IV ONE (12:28)
[2024-03-24] MEDS ORDERED: NITROGLYCERIN IN 5 % DEXTROSE 250 ML IV ONE (12:28)
[2024-03-24] MEDS ORDERED: LIDOCAINE HCL/MPF 1% 30 ML VIAL IJ ONE (12:28)
[2024-03-24] MEDS ORDERED: MIDAZOLAM HCL 2 MG/2ML VIAL ONE (13:39)
[2024-03-24] MEDS ORDERED: FENTANYL PF 100MCG/2ML AMPUL ONE (13:39)
[2024-03-24 16:00] VITALS: BP 138/94; TEMP 97.9; O2SAT 95
[2024-03-24 17:31] VITALS: BP 138/94
[2024-03-24] MEDS ORDERED: ATORVASTATIN 40 MG TABLET PO SCH (22:00)
== END 2024-03-24 19:00 | disposition home or self-care (01) | DRG 192 ==
LOC: ER 16:04 → TRANSITION 03-24 05:21 → TELE 03-24 06:12
PROVIDERS: ADMIT Internal Medicine; ATTEND Internal Medicine
PROC: 4A023N7 Measurement of Cardiac Sampling and Pressure, Left Heart, Percutaneous Approach (ICD-10-PCS; principal; 2024-03-24)
PROC: B211YZZ Fluoroscopy of Multiple Coronary Arteries using Other Contrast (ICD-10-PCS; 2024-03-24)
DX: M94.0 Chondrocostal junction syndrome [Tietze] (principal); E78.5 Hyperlipidemia, unspecified; F17.200 Nicotine dependence, unspecified, uncomplicated; I10 Essential (primary) hypertension; I25.10 Atherosclerotic heart disease of native coronary artery without angina pectoris; Z95.5 Presence of coronary angioplasty implant and graft; K29.70 Gastritis, unspecified, without bleeding; Z79.02 Long term (current) use of antithrombotics/antiplatelets; Z79.890 Hormone replacement therapy; Z79.82 Long term (current) use of aspirin; Z79.899 Other long term (current) drug therapy
CPT/HCPCS: 36415; 71045-TC; 80048-TC; 80053-TC; 80061-TC; 84443-TC; 84484-TC; 85025-TC; 85610-TC; 85730-TC; 93307-TC; A4223; G0378; J1644; J2250; J2270; J3010; J3490; J7030; Q9967

== ENCOUNTER 2024-10-03 15:19 | Inpatient (IN) | payer MEDICAID ==
[~2024-10-03] VITALS: Ht 177.8 cm; Wt 106.1 kg
[~2024-10-03 15:19] MED LIST changes: -CLOP75TA15 PO; +LEVO175T7 PO; -LEVO75TA7 PO; -PANT40TA2 PO; -SUCR1TAB31 PO
[2024-10-03] MEDS ORDERED: MORPHINE SULFATE INJ 4 MG/ML DISP.SYRIN ONE ×3 (15:35→20:06)
[2024-10-03] MEDS ORDERED: ONDANSETRON HCL/PF 4 MG/2 ML VIAL ONE (15:35)
[2024-10-03] MEDS ORDERED: ASPIRIN EC 325 MG TABLET.DR PO ONE (15:36)
[2024-10-03] MEDS: ASPIRIN 325 MG TABLET PO ONE (15:41)
[2024-10-03] MEDS: ONDANSETRON HCL/PF 4 MG/2 ML VIAL IVP ONE (15:41)
[2024-10-03] MEDS: MORPHINE SULFATE INJ 2 MG/ML DISP.SYRIN IV ONE ×3 (15:43→20:08)
[2024-10-03 15:47] LABS: PLATELET COUNT (AUTO) 269 K/uL (150-450); RED BLOOD CELL COUNT(AUTO) 5.47 MIL/uL (4.5-6.0); RED CELL DISTRIBUTION WIDTH 13.2 % (11.5-15.0); WHITE BLOOD COUNT (AUTO) 9.3 K/uL (4.3-11.0)
[2024-10-03 16:07] LABS: CALCIUM, SERUM 9.0 mg/dL (8.5-10.1); CREATININE 1.0 mg/dL (0.6-1.3); NT-PRO BNP 128 pg/mL (0-125); SODIUM SERUM 138 mmol/L (136-145); UREA NITROGEN, BLOOD 16 mg/dL (7-18)
[2024-10-03] MEDS: NITROGLYCERIN 0.4 MG/TAB BOTTLE SL ONE (16:34)
[2024-10-03] MEDS ORDERED: ZOLPIDEM TARTRATE 5 MG TABLET PO PRN (20:30)
[2024-10-03] MEDS ORDERED: ONDANSETRON HCL/PF 4 MG/2 ML VIAL IVP PRN (20:30)
[2024-10-03] MEDS ORDERED: DOCUSATE SODIUM 100 MG CAPSULE PO PRN (20:30)
[2024-10-03] MEDS ORDERED: NITROGLYCERIN 0.4 MG/TAB BOTTLE SL PRN (20:30)
[2024-10-03] MEDS ORDERED: MAG HYDROX/AL HYDROX/SIMETH 30 ML UDC PO PRN (20:30)
[2024-10-03] MEDS ORDERED: ACETAMINOPHEN 325 MG TABLET PO PRN (20:30)
[2024-10-03 21:10] VITALS: BP 136/97; TEMP 97.7; O2SAT 96
[2024-10-03] MEDS: HEPARIN SODIUM, PORCINE 5000 UNITS/1 ML VIAL SQ SCH (21:26)
[2024-10-03 21:30] VITALS: BP 136/97; TEMP 97.7; O2SAT 96
[2024-10-04] VITALS: BP 126/82; TEMP 98.2; O2SAT 94
[2024-10-04] MEDS: MORPHINE SULFATE INJ 2 MG/ML DISP.SYRIN IV PRN (00:03)
[2024-10-04 04:00] VITALS: BP 100/50; TEMP 97.7; O2SAT 96
[2024-10-04] MEDS: LEVOTHYROXINE SODIUM 175 MCG TABLET PO SCH (07:19)
[2024-10-04 07:39] LABS: LDL 107 mg/dL (0-99)
[2024-10-04 08:00] VITALS: BP 111/79; TEMP 97.5; O2SAT 94
[2024-10-04] MEDS: PANTOPRAZOLE 40 MG TABLET.DR PO SCH (08:38)
[2024-10-04] MEDS: ASPIRIN 81 MG TAB.CHEW PO SCH (08:38)
[2024-10-04] MEDS: AMLODIPINE BESYLATE 10 MG TABLET PO SCH (08:38)
[2024-10-04] MEDS: GABAPENTIN 100 MG CAPSULE PO SCH (08:38)
[2024-10-04] MEDS: ATORVASTATIN 40 MG TABLET PO SCH (08:38)
[2024-10-04] MEDS: METOPROLOL TARTRATE 25 MG TABLET PO SCH (08:39)
[2024-10-04] MEDS: HEPARIN SODIUM, PORCINE 5000 UNITS/1 ML VIAL SQ SCH (08:40)
[2024-10-04] MEDS ORDERED: IV NS 0.9% 250 ML IV ONE (11:57)
[2024-10-04] MEDS ORDERED: IOHEXOL-350 100 ML VIAL IV ONE (11:57)
[2024-10-04 12:00] VITALS: BP 105/75; TEMP 98.1; O2SAT 94
[2024-10-04] MEDS ORDERED: NITROGLYCERIN 0.4 MG/TAB BOTTLE ONE (12:29)
[2024-10-04] MEDS ORDERED: METOPROLOL TARTRATE INJ 5 MG/5 ML AMPUL ONE (12:30)
[2024-10-04] MEDS: METOPROLOL TARTRATE INJ 5 MG/5 ML AMPUL IVP PRN (12:32)
[2024-10-04] MEDS: NITROGLYCERIN 0.4 MG/TAB BOTTLE SL ONE (12:33)
[2024-10-04 16:00] VITALS: BP 106/69; TEMP 97.9; O2SAT 95
[2024-10-04] MEDS ORDERED: MORPHINE SULFATE INJ 4 MG/ML DISP.SYRIN IV PRN (18:00)
[2024-10-04 20:00] VITALS: BP 100/62; TEMP 97.9; O2SAT 96
== END 2024-10-04 20:01 | disposition left against medical advice (07) | DRG 203 ==
LOC: ER 15:22 → TELE 20:30
PROVIDERS: ADMIT Registered Nurse Psychiatric/Mental Health; ATTEND Internal Medicine
DX: M94.0 Chondrocostal junction syndrome [Tietze] (principal); E03.9 Hypothyroidism, unspecified; E66.9 Obesity, unspecified; I25.10 Atherosclerotic heart disease of native coronary artery without angina pectoris; I25.2 Old myocardial infarction; Z68.33 Body mass index [BMI] 33.0-33.9, adult; Z95.5 Presence of coronary angioplasty implant and graft; I10 Essential (primary) hypertension; K29.70 Gastritis, unspecified, without bleeding; E78.5 Hyperlipidemia, unspecified; Z79.890 Hormone replacement therapy; Z79.82 Long term (current) use of aspirin; Z79.899 Other long term (current) drug therapy; Z87.891 Personal history of nicotine dependence
CPT/HCPCS: 36415; 71045-TC; 75574; 80048-TC; 80061-TC; 83880; 84484-TC; 85025-TC; 85378-TC; 93307-TC; G0378; J1644; J2270; J2405; J3490; J7050; Q9967